=== PATIENT | male | born 1980 | race Caucasian/White ===

== ENCOUNTER → 2016-04-13 | Outpatient (CLI) | payer BC | LOC: BRMIMAGING 09:03 | PROVIDERS: ATTEND Internal Medicine | DX: M79.671 Pain in right foot (principal); M79.672 Pain in left foot; M79.641 Pain in right hand; M79.642 Pain in left hand; M85.80 Other specified disorders of bone density and structure, unspecified site; R22.42 Localized swelling, mass and lump, left lower limb; R22.31 Localized swelling, mass and lump, right upper limb; R22.32 Localized swelling, mass and lump, left upper limb | CPT/HCPCS: 73130-PO; 73630-PO ==